=== PATIENT | female | born 1960 ===

== ENCOUNTER 2024-07-30 12:42 | Outpatient (RCR) | payer OTHER, SELFPAY | END 2024-08-14 23:59 | disposition home or self-care (01) | LOC: CARDOPNVT 12:42 | PROVIDERS: Visit Provider Internal Medicine Cardiovascular Disease | DX: R00.2 Palpitations (principal) | CPT/HCPCS: 93225; 93226 ==

== ENCOUNTER 2024-08-02 08:21 | Outpatient (CLI) | payer OTHER, SELFPAY ==
--- NOTE | 2024-08-02 12:31 | W.CARDEVENT ---
Date of service: 08/02/24 Time of Service: 12:31 Cardiac Event Recorder Referring Provider:: Zaynab Antonio Indications:: Palpitations Cardiac Event Note: This is a cardiac event monitor. Patient was monitored for 2 days Rhythm throughout was sinus. Average heart rate was 80. Minimum was 54, maximum 123 There were very rare isolated atrial and ventricular ectopic beats There was no atrial fibrillation, no high-grade AV block, no pauses > 3 seconds No symptoms were reported
== END 2024-08-02 08:22 | disposition home or self-care (01) ==
LOC: CARDOPNVT 08:21
PROVIDERS: PCP Physician Assistant; Visit Provider Internal Medicine Cardiovascular Disease
DX: R00.2 Palpitations (principal)